=== PATIENT | male | born 1945 | race Hispanic/Latino ===

== ENCOUNTER 2021-09-23 21:38 | Inpatient (IN) | payer MEDICARE, MEDICAID ==
[2021-09-23 22:24] LABS: #Monocytes 0.6 10x3/uL (0.0-1.1); #Neutrophils 13.9 10x3/uL (1.5-8.4); %Basophils 0.3 % (0.0-2.0); %Lymphocytes 5.9 % (18.0-47.0); %Neutrophils 88.5 % (40.0-75.0); Hemoglobin 18.1 g/dL (13.5-17.5); Mean Corpuscular HGB CONC 33.8 g/dL (32.0-36.0); Mean Corpuscular Hemoglobin 31.2 pg (27.0-33.0); Mean Corpuscular Volume 92.3 fl (81.2-95.1); Mean Platelet Volume 11.4 fl (7.4-10.4); Platelet Count 111 10x3/uL (150-450); RBC Distribution Width 14.6 % (11.5-14.5); Red Blood Cell (RBC) Count 5.81 10x6/uL (4.32-5.72); White Blood Cell (WBC) Count 15.7 10x3/uL (3.5-10.5)
[2021-09-23] MEDS ORDERED: Morphine 4 MG/ML VIAL ONE (22:32)
[2021-09-23 22:34] LABS: ALT (SGPT) 31 U/L (8-55); AST (SGOT) 20 U/L (5-34); Albumin 3.9 g/dL (3.4-4.8); Alkaline Phosphatase 80 U/L (40-110); Anion Gap 16 mmol/L (10-20); BUN (Urea Nitrogen) 61 mg/dL (8.4-25.7); Bilirubin, Total 1.4 mg/dL (0.2-1.2); Calc. Creatinine Clearance 0 mL/min (70-130); Calcium 8.5 mg/dL (7.8-10.44); Carbon Dioxide 21 mmol/L (23-31); Chloride 104 mmol/L (98-107); Globulin 3.7 g/dL (2.4-3.5); Glucose 213 mg/dL (83-110); Lipase 40 U/L (8-78); Potassium 4.7 mmol/L (3.5-5.1); Protein, Total 7.6 g/dL (5.8-8.1); Sodium 136 mmol/L (136-145)
[2021-09-23 22:53] LABS: CKMB 2.3 ng/mL (0-6.6)
[2021-09-23 23:44] LABS: Bilirubin Neg (Negative); Blood, Urine Negative (Negative); Clarity Clear (Clear); Glucose, Urine (Dipstick) Normal (Negative); Ketone, Urine Negative (Negative); Leukocyte 100 (Negative); Nitrite Negative (Negative); Protein, Urine (Dipstick) Negative (Neg-Trace); Urobilinogen Normal mg/dL (Less than 2)
[2021-09-23 23:55] LABS: Bacteria/HPF None Seen HPF (None Seen); RBC/HPF None Seen HPF (0-3); Squamous Epithelial 0-3 HPF (0-3)
[2021-09-24] MEDS ORDERED: Cefepime 2 GM VIAL ONE (01:26)
[2021-09-24 01:52] LABS: Lactic Acid 1.5 mmol/L (0.5-2.2)
[2021-09-24] MEDS ORDERED: Morphine 4 MG/ML VIAL ONE (02:37)
[2021-09-24 04:55] VITALS: BMI 27.6
[2021-09-24 08:17] VITALS: BP 126/69; TEMP 97.4
[2021-09-24] MEDS ORDERED: HYDROcodone/Acetaminophen 5/325 mg Tablet PO PRN (08:53)
[2021-09-24] MEDS ORDERED: Dextrose 5% in Water 1,000 ML IV PRN (08:56)
[2021-09-24] MEDS ORDERED: HumaLOG 300 UNITS/3 ML VIAL SC PRN (08:56)
[2021-09-24] MEDS ORDERED: Dextrose 50% Abboject 50 ML SYRINGE SLOW IVP PRN (08:56)
[2021-09-24] MEDS ORDERED: Morphine 4 MG/ML VIAL SLOW IVP PRN (09:01)
[2021-09-24] MEDS ORDERED: Carvedilol 6.25 MG TAB PO SCH ×2 (09:15→21:00)
[2021-09-24] MEDS: Levothyroxine Sodium 25 MCG TAB PO SCH ×2 (10:50→19:49)
[2021-09-24] MEDS ORDERED: cefTRIAXone\\ROCEPHIN 1 GM in Sodium Chloride 0.9% 100 ML IVPB SCH (14:00)
[2021-09-25] MEDS ORDERED: Levothyroxine Sodium 25 MCG TAB PO SCH (06:00)
[2021-09-25] MEDS ORDERED: FLU VACC QS2021-22(65YR UP)/PF 240 MCG/0.7 ML SYRINGE IM ONE (09:00)
== END 2021-09-24 15:14 | disposition hospice, home (50) | DRG 640 ==
LOC: CSHERS 21:38 → CSHTELE 09-24 04:45
PROVIDERS: ADMIT Family Medicine; ATTEND Internal Medicine
DX: E86.0 Dehydration (principal); G93.6 Cerebral edema; N17.9 Acute kidney failure, unspecified; I13.0 Hypertensive heart and chronic kidney disease with heart failure and stage 1 through stage 4 chronic kidney disease, or unspecified chronic kidney disease; G93.89 Other specified disorders of brain; I50.9 Heart failure, unspecified; Z66 Do not resuscitate; T50.2X5A Adverse effect of carbonic-anhydrase inhibitors, benzothiadiazides and other diuretics, initial encounter; E78.00 Pure hypercholesterolemia, unspecified; N18.9 Chronic kidney disease, unspecified; E11.22 Type 2 diabetes mellitus with diabetic chronic kidney disease; E78.5 Hyperlipidemia, unspecified; Z88.5 Allergy status to narcotic agent; Z79.899 Other long term (current) drug therapy; Z79.890 Hormone replacement therapy; Z79.4 Long term (current) use of insulin; Z79.84 Long term (current) use of oral hypoglycemic drugs; Z95.810 Presence of automatic (implantable) cardiac defibrillator; R79.89 Other specified abnormal findings of blood chemistry
CPT/HCPCS: 36415; 36416; 70450; 71045; 74177; 80053; 81003; 81015; 82553; 83605; 83690; 84484; 85025; 87040; 87077; 87086; 87186; 93005; 96365; 96366; 96367; 96375; 96376; J0692; J2270; J3370